=== PATIENT | male | born 1960 ===

== ENCOUNTER 2021-09-09 16:21 | Observation (INO) | payer BC ==
[2021-09-09] MEDS ORDERED: Sodium Chloride 0.9% 10 ML Syringe FLUSH PRN (16:32)
[2021-09-09] MEDS ORDERED: Sodium Chloride 0.9% 2.5 ML Syringe FLUSH PRN (16:32)
[2021-09-09] MEDS ORDERED: Sodium Chloride 0.9% 1,000 ML IV ONE (16:46)
--- NOTE | 2021-09-09 16:56 | CR ---
INDICATION: Syncope TECHNIQUE: Chest 1 view. COMPARISON: None. FINDINGS: Cardiovascular and mediastinum: Heart size and vasculature are normal in caliber and appearance. Mediastinum is within normal limits. Lungs and pleural space: Lungs are clear. No sign of infiltrate or mass. No sign of pleural effusion. No pneumothorax. Bones and soft tissues: No significant findings. IMPRESSION: Unremarkable chest. Dictated by: Kobe Sanchez MD @ 09/09/2021 16:55:52 (Electronically Signed)
[2021-09-09 17:16] LABS: BLOOD UREA NITROGEN,BUN 27 mg/dL (7.0-18.0); CARBON DIOXIDE,CO2 26.1 mmol/L (21.0-32.0); CHLORIDE,CL 102 mmol/L (98-107); GLUCOSE RANDOM 168 mg/dL (74-106); POTASSIUM,K 3.1 mmol/L (3.5-5.1); SODIUM,NA 138 mmol/L (136-148)
[2021-09-09] MEDS ORDERED: Potassium Chloride 20 MEQ Tab.ER PO ONE (17:39)
--- NOTE | 2021-09-09 18:03 | CT ---
INDICATION: Trunk. Loss of consciousness. TECHNIQUE: Noncontrast axial CT of the head is submitted. No comparisons. FINDINGS: The ventricles, sulci and gyri are of normal size, shape and contour for age. Midline structures are centrally located. No convincing evidence of suspicious intra- or extra-axial fluid collections. Mild patchy regions of decreased attenuation within the white matter of both posterior cerebral hemispheres. IMPRESSION: 1. No radiographic evidence of acute intracranial abnormalities. 2. Mild supratentorial white matter changes that are non-specific, but statistically most likely related to chronic small vessel ischemic disease. Dictated by Onofre Alvarez MD @ 09/09/2021 6:01:37 PM Please note that all CT scans at this facility use dose modulation, iterative reconstruction, and/or weight-based dosing when appropriate to reduce radiation dose to as low as reasonably achievable. Dictated by: Onofre Alvarez MD @ 09/09/2021 18:02:12 (Electronically Signed)
--- NOTE | 2021-09-09 18:34 | PCM.EKG ---
#1 Interpretation EKG Date: 09/09/21 Time: 16:25 Rhythm: NSR Rate (Beats/Min): 77 ST-T: Normal
--- NOTE | 2021-09-09 18:40 | EDM.PDOC ---
ED HPI GENERAL MEDICAL PROBLEM - General Chief Complaint: Syncope Stated Complaint: FAINTED Time Seen by Provider: 09/09/21 16:32 Source of Information: Reports: Patient History Limitations: Reports: No Limitations - History of Present Illness INITIAL COMMENTS - FREE TEXT/NARRATIVE: HISTORY AND PHYSICAL: History of present illness: Patient is a 61-year-old male with a history of type 2 diabetes, hypertension, hyperlipidemia, and family history of coronary artery disease according to patient, who presents emergency room today with concern of syncopal event that occurred prior to arrival to the emergency room. Patient arrives via EMS. Patient states that he was at work and states that he was standing and talking to some coworkers when he had some associated nausea. Patient states that a coworker had recommended him to go sit down and states that he woke up on the ground. Patient states he does not recall any of these events but states that his coworker told him that he was out for several seconds and hit his head on the side of the vehicle when falling. Patient states that this time, he does have associated headache, feels fatigued/rundown, but denies any other associated symptoms at this time. Patient denies fever, chills, chest pain, shortness of breath, or cough. Denies neck stiff ness, change in vision. Denies vomiting, abdominal pain, diarrhea, constipation, or dysuria. Has not noted any blood in urine or stool. Patient has been eating and drinking appropriately. Review of systems: As per history of present illness and below otherwise all systems reviewed and negative. Past medical history: As per history of present illness and as reviewed below otherwise noncontributory. Surgical history: As per history of present illness and as reviewed below otherwise noncontributory. Social history: See social history for further information Family history: As per history of present illness and as reviewed below otherwise noncontributory. Physical exam: General: Patient is alert, oriented, and in no acute distress. Patient sitting comfortably on exam table. Vitals stable and reviewed by me. HEENT: Contusion with overlying superficial ridges noted to the right temporal area without overlying crepitus. Otherwise, atraumatic, normocephalic, pupils equal and reactive bilaterally, negative for conjunctival pallor or scleral icterus, mucous membranes moist, throat clear, neck supple, nontender, trachea midline. No drooling or trismus noted. No meningeal signs. No hot potato voice noted. Lungs: Clear to auscultation, breath sounds equal bilaterally, chest nontender. Heart: S1S2, regular rate and rhythm without overt murmur Abdomen: Soft, nondistended, nontender. Negative for masses or hepatosplenomegaly. Negative for costovertebral tenderness. Pelvis: Stable nontender. Genitourinary: Deferred. Rectal: Deferred. Skin: Intact, warm, dry. No lesions or rashes noted. Extremities: Atraumatic, negative for cords or calf pain. Neurovascular unremarkable. Neuro: Awake, alert, oriented. Cranial nerves II through XII unremarkable. Cerebellum unremarkable. Motor and sensory unremarkable throughout. Exam nonfocal. Medical Decision Making: Patient is a 61-year-old male with a history of type 2 diabetes, hypertension, hyperlipidemia, and family history of significant coronary artery disease according to patient, who presents emergency room today with concern of a syncopal event that occurred just prior to arrival to the emergency room with associated head injury. Upon arrival to the ED, patient is vitally stable and well-appearing on exam. He does have a superficial abrasion and contusion noted to the right temporal region without bleeding at this time. No underlying crepitus to palpation. Exam is otherwise unremarkable. Will obtain cardiac evaluation, head CT given associated head injury with syncopal event, provide therapeutics and reassess patient. Orthostatic vitals are positive. See Dr. Bond's dictation for specific EKG interpretation. Otherwise, normal sinus rhythm without STEMI. Noted some nonspecific interventricular conduction delay which is nonspecific. CBC does show mild leukocytosis with white blood cells at 12.16, otherwise mild derangements of CBC are unremarkable. CMP does show mild hypokalemia with potassium of 3.1. Will provide p.o. potassium today in the emergency room. BUN is elevated in isolation at 27. Otherwise mild derangements of CMP unremarkable. Troponin negative. Chest x-ray is unremarkable. Head CT shows no radiographic evidence of acute intracranial abnormality. Mild supratentorial white matter changes that are nonspecific, but most likely related to chronic small vessel ischemic disease. Upon reevaluation of patient, he remains vitally stable and comfortable throughout stay in ED. I did discuss with patient some of his associated risk factors being his comorbidity diseases, his age, and family history of heart concerns. Patient states that he would feel more comfortable being admitted to the hospital for observation. I did call and speak to the hospitalist on-call, Dr. Louise, and thoroughly discussed patient's case. Will admit to observation on telemetry to Dr. Louise. Voices understanding and is agreeable to plan of care. Denies any further questions or concerns at this time. Diagnostics: EKG, CBC, CMP, chest x-ray, troponin, COVID-19, magnesium, orthostatic vitals, head CT Therapeutics: Normal saline, potassium Impression: Syncope Head injury Dehydration Hypokalemia Plan: Admit to observation to Dr. Louise on telemetry Definitive disposition and diagnosis as appropriate pending reevaluation and review of above. - Related Data Allergies Allergy/AdvReac Type Severity Reaction Status Date / Time mold Allergy Other Verified 09/09/21 16:30 dust Allergy Other Uncoded 09/09/21 16:30 Home Meds: Home Meds Levothyroxine [Synthroid] 50 mcg PO DAILY 06/06/17 [History] Lisinopril 20 mg PO DAILY 06/06/17 [History] Lisinopril 40 mg PO DAILY 06/06/17 [History] Multivitamin [Daily Ry] 1 tab PO DAILY 06/06/17 [History] Omeprazole 20 mg PO DAILY 06/06/17 [History] Pravastatin Sodium [Pravastatin (Pravachol)] 40 mg PO DAILY 06/06/17 [History] Tadalafil [Cialis] 20 mg PO DAILY 09/09/21 [History] Ubidecarenone [COQ-10] 100 mg PO DAILY 09/09/21 [History] Zinc 50 mg PO DAILY 09/09/21 [History] amLODIPine [Norvasc] 5 mg PO DAILY 09/09/21 [History] Past Medical History Cardiovascular History: Reports: Hypertension Psychiatric History: Reports: Anxiety - Infectious Disease History Infectious Disease History: Reports: Chicken Pox, Novel Coronavirus - Past Surgical History Other Endocrine Surgeries/Procedures: Boarderline Type 2 Diabetes Social & Family History - Tobacco Use Tobacco Use Status *Q: Never Tobacco User - Recreational Drug Use Recreational Drug Use: No ED ROS GENERAL - Review of Systems Review Of Systems: Comprehensive ROS is negative, except as noted in HPI. ED EXAM, GENERAL - Physical Exam Exam: See Below (see dictation) Course - Vital Signs Last Recorded V/S: Last Vital Signs Temp 98.9 F 12/09/21 16:34 Pulse 78 09/09/21 17:21 Resp 16 09/09/21 17:21 BP 138/78 09/09/21 17:21 Pulse Ox 99 09/09/21 17:21 Orthostatic Blood Pressure [ 98/60 Standing] Orthostatic Blood Pressure [ 130/66 Sitting] Orthostatic Blood Pressure [ 121/71 Supine] - Orders/Labs/Meds Orders: Active Orders 24 hr Category Date Time Status Admission Status [Patient Status] [ADT] Stat ADT 09/09/21 18:31 Ordered CORONAVIRUS COVID-19 KEYA [MOLEC] Stat Lab 09/09/21 18:28 Ordered Sodium Chloride 0.9% [Saline Flush] Med 09/09/21 16:32 Active 10 ml FLUSH ASDIRECTED PRN Sodium Chloride 0.9% [Saline Flush] Med 09/09/21 16:32 Active 2.5 ml FLUSH ASDIRECTED PRN Saline Lock Insert [OM.PC] Stat Oth 09/09/21 16:32 Ordered Medication Orders Sodium Chloride (Sodium Chloride 0.9% 10 Ml Syringe) 10 ml FLUSH ASDIRECTED PRN PRN Reason: Keep Vein Open Last Admin: 09/09/21 16:41 Dose: 10 ml Documented by: MINESH Sodium Chloride (Sodium Chloride 0.9% 2.5 Ml Syringe) 2.5 ml FLUSH ASDIRECTED PRN PRN Reason: Keep Vein Open Last Admin: 09/09/21 16:41 Dose: 2.5 ml Documented by: MINESH Labs: Laboratory Tests 09/09/21 09/09/21 09/09/21 Range/Units 16:25 16:25 16:25 WBC 12.16 H (4.0-11.0) K/uL RBC 4.18 L (4.50-5.90) M/uL Hgb 13.5 (13.0-17.0) g/dL Hct 38.2 (38.0-50.0) % MCV 91.4 (80.0-98.0) fL MCH 32.3 H (27.0-32.0) pg MCHC 35.3 (31.0-37.0) g/dL RDW Std Deviation 40.9 (28.0-62.0) fl RDW Coeff of Chris 12 (11.0-15.0) % Plt Count 275 (150-400) K/uL MPV 9.50 (7.40-12.00) fL Neut % (Auto) 82.5 H (48.0-80.0) % Lymph % (Auto) 13.0 L (16.0-40.0) % [place] % (Auto) 4.0 (0.0-15.0) % Eos % (Auto) 0.4 (0.0-7.0) % Baso % (Auto) 0.1 (0.0-1.5) % Neut # (Auto) 10.0 H (1.4-5.7) K/uL Lymph # (Auto) 1.6 (0.6-2.4) K/uL [place] # (Auto) 0.5 (0.0-0.8) K/uL Eos # (Auto) 0.1 (0.0-0.7) K/uL Baso # (Auto) 0.0 (0.0-0.1) K/uL Nucleated RBC % 0.0 /100WBC Nucleated RBCs # 0 K/uL Sodium 138 (136-148) mmol/L Potassium 3.1 L (3.5-5.1) mmol/L Chloride 102 (98-107) mmol/L Carbon Dioxide 26.1 (21.0-32.0) mmol/L BUN 27 H (7.0-18.0) mg/dL Creatinine 1.2 (0.8-1.3) mg/dL Est Cr Clr Drug Dosing 65.46 mL/min Estimated GFR (MDRD) > 60.0 ml/min Glucose 168 H (74-106) mg/dL Calcium 8.3 L (8.5-10.1) mg/dL Magnesium 1.9 (1.8-2.4) mg/dL Total Bilirubin 0.7 (0.2-1.0) mg/dL AST 26 (15-37) IU/L ALT 46 (14-63) IU/L Alkaline Phosphatase 82 (46-116) U/L Troponin I < 0.050 (0.000-0.056) ng/mL Total Protein 7.4 (6.4-8.2) g/dL Albumin 3.6 (3.4-5.0) g/dL Globulin 3.8 (2.6-4.0) g/dL Albumin/Globulin Ratio 0.9 (0.9-1.6) Meds: Medications Generic Name Dose Route Start Last Admin Trade Name Freq PRN Reason Stop Dose Admin Sodium Chloride 10 ml 09/09/21 16:32 09/09/21 16:41 Sodium Chloride 0.9% 10 Ml Syringe FLUSH 10 ml ASDIRECTED PRN Administration Keep Vein Open Sodium Chloride 2.5 ml 09/09/21 16:32 09/09/21 16:41 Sodium Chloride 0.9% 2.5 Ml Syringe FLUSH 2.5 ml ASDIRECTED PRN Administration Keep Vein Open Discontinued Medications Generic Name Dose Route Start Last Admin Trade Name Freq PRN Reason Stop Dose Admin Sodium Chloride 1,000 mls @ 999 mls/hr 09/09/21 16:46 09/09/21 16:51 Normal Saline IV 09/09/21 17:46 999 mls/hr STAT ONE Administration Potassium Chloride 40 meq 09/09/21 17:39 09/09/21 17:57 Potassium Chloride 20 Meq Tab.Er PO 09/09/21 17:40 40 meq ONETIME ONE Administration Departure - Departure Time of Disposition: 18:33 Disposition: Refer to Observation Clinical Impression: Syncope, Head injury, Dehydration, Hypokalemia - Discharge Information Sepsis Event Note (ED) - Evaluation Sepsis Screening Result: No Definite Risk - Focused Exam Vital Signs: Vital Signs Temp Pulse Resp BP Pulse Ox 09/09/21 17:21 78 16 138/78 99 09/09/21 16:34 98.9 F 83 16 120/71 96 - My Orders Last 24 Hours: My Active Orders 09/09/21 16:32 Sodium Chloride 0.9% [Saline Flush] 10 ml FLUSH ASDIRECTED PRN Sodium Chloride 0.9% [Saline Flush] 2.5 ml FLUSH ASDIRECTED PRN Saline Lock Insert [OM.PC] Stat 09/09/21 18:28 CORONAVIRUS COVID-19 KEYA [MOLEC] Stat 09/09/21 18:31 Admission Status [Patient Status] [ADT] Stat - Assessment/Plan Last 24 Hours: My Active Orders 09/09/21 16:32 Sodium Chloride 0.9% [Saline Flush] 10 ml FLUSH ASDIRECTED PRN Sodium Chloride 0.9% [Saline Flush] 2.5 ml FLUSH ASDIRECTED PRN Saline Lock Insert [OM.PC] Stat 09/09/21 18:28 CORONAVIRUS COVID-19 KEYA [MOLEC] Stat 09/09/21 18:31 Admission Status [Patient Status] [ADT] Stat
--- NOTE | 2021-09-09 19:39 | PCM.HP.2 ---
H&P History of Present Illness - General Date of Service: 09/09/21 Admit Problem/Dx: Admission Diagnosis/Problem Admission Diagnosis/Problem Syncope - History of Present Illness Initial Comments - Free Text/Narative: 61 yo male with pmh of HTN, DM, Hypothyroidism who presents to the ED after passing out at work. He reports before passing out he felt nauseous. He fainted and loss consciousness for 15 seconds. He did hit his head. When he woke up he had abdominal discomfort and had a several bowel movements with loose stool. He denies any fever, shortness of breath or chest pain. Patient denies having problems with lightheadedness or syncope in the past. - Related Data Allergies/Adverse Reactions: Allergies Allergy/AdvReac Type Severity Reaction Status Date / Time mold Allergy Other Verified 09/09/21 16:30 dust Allergy Other Uncoded 09/09/21 16:30 Home Medications: Home Meds Levothyroxine [Synthroid] 50 mcg PO DAILY 06/06/17 [History] Lisinopril 20 mg PO DAILY 06/06/17 [History] Lisinopril 40 mg PO DAILY 06/06/17 [History] Multivitamin [Daily Ry] 1 tab PO DAILY 06/06/17 [History] Omeprazole 20 mg PO DAILY 06/06/17 [History] Pravastatin Sodium [Pravastatin (Pravachol)] 40 mg PO DAILY 06/06/17 [History] Tadalafil [Cialis] 20 mg PO DAILY 09/09/21 [History] Ubidecarenone [COQ-10] 100 mg PO DAILY 09/09/21 [History] Zinc 50 mg PO DAILY 09/09/21 [History] amLODIPine [Norvasc] 5 mg PO DAILY 09/09/21 [History] Past Medical History Cardiovascular History: Reports: Hypertension Psychiatric History: Reports: Anxiety - Infectious Disease History Infectious Disease History: Reports: Chicken Pox, Novel Coronavirus - Past Surgical History Other Endocrine Surgeries/Procedures: Boarderline Type 2 Diabetes Social & Family History - Tobacco Use Tobacco Use Status *Q: Never Tobacco User - Recreational Drug Use Recreational Drug Use: No H&P Review of Systems - Review of Systems: Review Of Systems: Comprehensive ROS is negative, except as noted in HPI. Exam - Exam Exam: See Below - Vital Signs Vital Signs: Last Vital Signs Temp 37.2 C 09/09/21 16:34 Pulse 85 09/09/21 18:43 Resp 16 09/09/21 18:43 BP 123/73 09/09/21 18:43 Pulse Ox 95 09/09/21 18:43 Orthostatic Blood Pressure [ 98/60 Standing] Orthostatic Blood Pressure [ 130/66 Sitting] Orthostatic Blood Pressure [ 121/71 Supine] Weight: 112.491 kg - Exam General: Alert, Oriented Lungs: Clear to Auscultation, Normal Respiratory Effort Cardiovascular: Regular Rate, Regular Rhythm GI/Abdominal Exam: Normal Bowel Sounds, Soft, Non-Tender Extremities: Non-Tender, No Pedal Edema Skin: Warm, Dry, Intact Neurological: Cranial Nerves Intact. No: Focal Deficit - Patient Data Lab Results Last 24 hrs: Laboratory Results - last 24 hr 09/09/21 09/09/21 09/09/21 Range/Units 16:25 16:25 16:25 WBC 12.16 H (4.0-11.0) K/uL RBC 4.18 L (4.50-5.90) M/uL Hgb 13.5 (13.0-17.0) g/dL Hct 38.2 (38.0-50.0) % MCV 91.4 (80.0-98.0) fL MCH 32.3 H (27.0-32.0) pg MCHC 35.3 (31.0-37.0) g/dL RDW Std Deviation 40.9 (28.0-62.0) fl RDW Coeff of Chris 12 (11.0-15.0) % Plt Count 275 (150-400) K/uL MPV 9.50 (7.40-12.00) fL Neut % (Auto) 82.5 H (48.0-80.0) % Lymph % (Auto) 13.0 L (16.0-40.0) % [place] % (Auto) 4.0 (0.0-15.0) % Eos % (Auto) 0.4 (0.0-7.0) % Baso % (Auto) 0.1 (0.0-1.5) % Neut # (Auto) 10.0 H (1.4-5.7) K/uL Lymph # (Auto) 1.6 (0.6-2.4) K/uL [place] # (Auto) 0.5 (0.0-0.8) K/uL Eos # (Auto) 0.1 (0.0-0.7) K/uL Baso # (Auto) 0.0 (0.0-0.1) K/uL Nucleated RBC % 0.0 /100WBC Nucleated RBCs # 0 K/uL Sodium 138 (136-148) mmol/L Potassium 3.1 L (3.5-5.1) mmol/L Chloride 102 (98-107) mmol/L Carbon Dioxide 26.1 (21.0-32.0) mmol/L BUN 27 H (7.0-18.0) mg/dL Creatinine 1.2 (0.8-1.3) mg/dL Est Cr Clr Drug Dosing 65.46 mL/min Estimated GFR (MDRD) > 60.0 ml/min Glucose 168 H (74-106) mg/dL Calcium 8.3 L (8.5-10.1) mg/dL Magnesium 1.9 (1.8-2.4) mg/dL Total Bilirubin 0.7 (0.2-1.0) mg/dL AST 26 (15-37) IU/L ALT 46 (14-63) IU/L Alkaline Phosphatase 82 (46-116) U/L Troponin I < 0.050 (0.000-0.056) ng/mL Total Protein 7.4 (6.4-8.2) g/dL Albumin 3.6 (3.4-5.0) g/dL Globulin 3.8 (2.6-4.0) g/dL Albumin/Globulin Ratio 0.9 (0.9-1.6) SARS-CoV-2 RNA (KEYA) (NEGATIVE) 09/09/21 Range/Units 18:41 WBC (4.0-11.0) K/uL RBC (4.50-5.90) M/uL Hgb (13.0-17.0) g/dL Hct (38.0-50.0) % MCV (80.0-98.0) fL MCH (27.0-32.0) pg MCHC (31.0-37.0) g/dL RDW Std Deviation (28.0-62.0) fl RDW Coeff of Chris (11.0-15.0) % Plt Count (150-400) K/uL MPV (7.40-12.00) fL Neut % (Auto) (48.0-80.0) % Lymph % (Auto) (16.0-40.0) % [place] % (Auto) (0.0-15.0) % Eos % (Auto) (0.0-7.0) % Baso % (Auto) (0.0-1.5) % Neut # (Auto) (1.4-5.7) K/uL Lymph # (Auto) (0.6-2.4) K/uL [place] # (Auto) (0.0-0.8) K/uL Eos # (Auto) (0.0-0.7) K/uL Baso # (Auto) (0.0-0.1) K/uL Nucleated RBC % /100WBC Nucleated RBCs # K/uL Sodium (136-148) mmol/L Potassium (3.5-5.1) mmol/L Chloride (98-107) mmol/L Carbon Dioxide (21.0-32.0) mmol/L BUN (7.0-18.0) mg/dL Creatinine (0.8-1.3) mg/dL Est Cr Clr Drug Dosing mL/min Estimated GFR (MDRD) ml/min Glucose (74-106) mg/dL Calcium (8.5-10.1) mg/dL Magnesium (1.8-2.4) mg/dL Total Bilirubin (0.2-1.0) mg/dL AST (15-37) IU/L ALT (14-63) IU/L Alkaline Phosphatase (46-116) U/L Troponin I (0.000-0.056) ng/mL Total Protein (6.4-8.2) g/dL Albumin (3.4-5.0) g/dL Globulin (2.6-4.0) g/dL Albumin/Globulin Ratio (0.9-1.6) SARS-CoV-2 RNA (KEYA) NEGATIVE (NEGATIVE) Result Diagrams: 09/10/21 05:44 09/10/21 05:44 Sepsis Event Note - Evaluation Sepsis Screening Result: No Definite Risk - Focused Exam Vital Signs: Vital Signs Temp Pulse Resp BP Pulse Ox 09/09/21 18:43 85 16 123/73 95 12/09/21 17:21 78 16 138/78 99 09/09/21 16:34 37.2 C 83 16 120/71 96 - Problem List (1) Hypokalemia SNOMED Code(s): 73716373 ICD Code: E87.6 - HYPOKALEMIA Status: Acute Current Visit: No (2) Syncope SNOMED Code(s): 921154469 ICD Code: R55 - SYNCOPE AND COLLAPSE Status: Acute Current Visit: No Problem List Initiated/Reviewed/Updated: Yes Orders Last 24hrs: Active Orders 24 hr Category Date Time Status Admission Status [Patient Status] [ADT] Stat ADT 09/09/21 18:31 Active Cardiac Monitoring [RC] CONTINUOUS Care 09/09/21 19:34 Ordered Oxygen Therapy [RC] PRN Care 09/09/21 19:33 Ordered VTE/DVT Education [RC] PER UNIT ROUTINE Care 09/09/21 19:33 Ordered Vital Signs [RC] Q4H Care 09/09/21 19:33 Ordered [employer] Diet [DIET] Diet 09/09/21 Breakfast Ordered BASIC METABOLIC PANEL,BMP [CHEM] AM Lab 09/10/21 05:11 Ordered CBC WITH AUTO DIFF [HEME] AM Lab 09/10/21 05:11 Ordered Levothyroxine [Synthroid] Med 09/10/21 09:00 Ordered 50 mcg PO DAILY Omeprazole [Omeprazole] Med 09/10/21 09:00 Ordered 20 mg PO DAILY Pravastatin [Pravachol] Med 09/10/21 09:00 Ordered 40 mg PO DAILY Sodium Chloride 0.9% [Saline Flush] Med 09/09/21 16:32 Active 10 ml FLUSH ASDIRECTED PRN Sodium Chloride 0.9% [Saline Flush] Med 09/09/21 16:32 Active 2.5 ml FLUSH ASDIRECTED PRN amLODIPine [Norvasc] Med 09/10/21 09:00 Ordered 5 mg PO DAILY lisinopriL Med 09/10/21 09:00 Ordered 20 mg PO DAILY Saline Lock Insert [OM.PC] Stat Oth 09/09/21 16:32 Ordered Resuscitation Status Routine Resus Stat 09/09/21 19:33 Ordered Medication Orders Amlodipine Besylate (Amlodipine 5 Mg Tab) 5 mg PO DAILY ABENA Levothyroxine Sodium (Levothyroxine 50 Mcg Tab) 50 mcg PO DAILY ABENA Non-Formulary Medication (Omeprazole [Omeprazole]) 20 mg PO DAILY ABENA Non-Formulary Medication (Lisinopril) 20 mg PO DAILY ABENA Pravastatin Sodium (Pravastatin 40 Mg Tab) 40 mg PO DAILY ABENA Sodium Chloride (Sodium Chloride 0.9% 10 Ml Syringe) 10 ml FLUSH ASDIRECTED PRN PRN Reason: Keep Vein Open Last Admin: 09/09/21 16:41 Dose: 10 ml Documented by: MINESH Sodium Chloride (Sodium Chloride 0.9% 2.5 Ml Syringe) 2.5 ml FLUSH ASDIRECTED PRN PRN Reason: Keep Vein Open Last Admin: 09/09/21 16:41 Dose: 2.5 ml Documented by: MINESH Assessment/Plan Comment:: 61 yo male admitted following a syncopal event. This could have been triggered from gastroenteritis. Patient has received IV fluids. We will monitor overnight on telemetry Update: patient had no events on telemetry overnight. He is feeling well and wanting to go home. We will discharge patient home to follow up with his primary care provider.
[2021-09-10 06:27] LABS: BLOOD UREA NITROGEN,BUN 20 mg/dL (7.0-18.0); CARBON DIOXIDE,CO2 26.3 mmol/L (21.0-32.0); CHLORIDE,CL 101 mmol/L (98-107); GLUCOSE RANDOM 142 mg/dL (74-106); POTASSIUM,K 3.3 mmol/L (3.5-5.1); SODIUM,NA 137 mmol/L (136-148)
[2021-09-10] MEDS ORDERED: Potassium Chloride 20 MEQ Tab.ER PO ONE (07:04)
[2021-09-10 07:57] VITALS: PULSE 74
[2021-09-10] MEDS ORDERED: Lisinopril 10 MG Tab PO SCH (09:00)
[2021-09-10] MEDS ORDERED: Omeprazole 20 MG Cap.CR PO SCH (09:00)
[2021-09-10] MEDS ORDERED: Levothyroxine 50 MCG Tab PO SCH (09:00)
[2021-09-10] MEDS ORDERED: Pravastatin 40 MG Tab PO SCH (09:00)
[2021-09-10] MEDS ORDERED: amLODIPine 5 MG Tab PO SCH (09:00)
[2021-09-10 09:31] VITALS: BP 137/77
== END 2021-09-10 11:20 | disposition home or self-care (01) ==
LOC: MW.ED 16:21 → MW.MS 18:31
PROVIDERS: ADMIT Internal Medicine; ATTEND Internal Medicine
DX: R55 Syncope and collapse (principal); K52.9 Noninfective gastroenteritis and colitis, unspecified; I10 Essential (primary) hypertension; E11.9 Type 2 diabetes mellitus without complications; E03.9 Hypothyroidism, unspecified; F41.9 Anxiety disorder, unspecified; E87.6 Hypokalemia; Z91.048 Other nonmedicinal substance allergy status; Z79.899 Other long term (current) drug therapy; Z79.890 Hormone replacement therapy; Z20.822 Contact with and (suspected) exposure to COVID-19
CPT/HCPCS: 36415; 70450; 71045; 80048; 80053; 83735; 84484; 85025; 87635; 93005; 99285; A9270; J7030; G0378; U0002